=== PATIENT | male | born 1990 ===

== ENCOUNTER 2022-12-10 06:00 | Outpatient (RCR) | payer MEDICAID, SELFPAY | END 2022-12-18 23:59 | disposition home or self-care (01) | LOC: SPT 06:00 | PROVIDERS: Visit Provider Nurse Practitioner Family | DX: M54.2 Cervicalgia (principal); G89.4 Chronic pain syndrome | CPT/HCPCS: 97161 ==

== ENCOUNTER 2022-12-19 06:00 | Outpatient (RCR) | payer MEDICAID, SELFPAY | END 2023-01-17 23:59 | disposition home or self-care (01) | LOC: SPT 06:00 | PROVIDERS: Visit Provider Nurse Practitioner Family | DX: M54.2 Cervicalgia (principal); G89.4 Chronic pain syndrome | CPT/HCPCS: 97110; 97530 ==

== ENCOUNTER 2023-01-23 06:00 | Outpatient (RCR) | payer MEDICAID, SELFPAY | END 2023-02-17 23:59 | disposition home or self-care (01) | LOC: SPT 06:00 | PROVIDERS: Visit Provider Nurse Practitioner Family | DX: G89.4 Chronic pain syndrome (principal); M54.2 Cervicalgia | CPT/HCPCS: 97110; 97140; 97530 ==

== ENCOUNTER 2023-02-18 06:00 | Outpatient (RCR) | payer MEDICAID, SELFPAY | END 2023-03-20 23:59 | disposition home or self-care (01) | LOC: SPT 06:00 | PROVIDERS: Visit Provider Nurse Practitioner Family | DX: M54.2 Cervicalgia (principal); G89.4 Chronic pain syndrome | CPT/HCPCS: 97530 ==

== ENCOUNTER 2023-03-21 06:00 | Outpatient (RCR) | payer MEDICAID, SELFPAY | END 2023-04-19 23:59 | disposition home or self-care (01) | LOC: SPT 06:00 | PROVIDERS: Visit Provider Nurse Practitioner Family | DX: M54.2 Cervicalgia (principal); G89.4 Chronic pain syndrome | CPT/HCPCS: 97140; 97530 ==

== ENCOUNTER 2023-04-20 06:00 | Outpatient (RCR) | payer MEDICAID, SELFPAY | END 2023-05-20 23:59 | disposition home or self-care (01) | LOC: SPT 06:00 | PROVIDERS: Visit Provider Nurse Practitioner Family | DX: G89.4 Chronic pain syndrome (principal); M54.2 Cervicalgia | CPT/HCPCS: 97140; 97530 ==

== ENCOUNTER 2023-05-21 06:00 | Outpatient (RCR) | payer MEDICAID, SELFPAY | END 2023-06-19 23:59 | disposition home or self-care (01) | LOC: SPT 06:00 | PROVIDERS: Visit Provider Nurse Practitioner Family | DX: G89.4 Chronic pain syndrome (principal); M54.2 Cervicalgia | CPT/HCPCS: 97140 ==